=== PATIENT | female | born 1955 | race Caucasian/White ===

== ENCOUNTER 2016-09-12 06:16 | Day surgery (SDC) | payer OTHER ==
[~2016-09-12] VITALS: Ht 152.4 cm; Wt 85.1 kg
[2016-09-12] VITALS (11 sets, daily range): BP systolic 113–137; BP diastolic 68–85; PULSE 56–85; RESP 12–17; O2SAT 93–99
[~2016-09-12 06:16] MED LIST: ACET-2605 PO; ASPI-973 PO; ATA16T PO; ATEN50TA PO; CeFAZolin 2 Gm/50 mL D5W IV Premix IV ONE; Lactated Ringer's 1,000 ML IV SCH; NITR0.4T6 SL; SIMV40TA5 PO
[2016-09-12] MEDS ORDERED: fentaNYL-PF 50 mCg/mL 2 mL Inj ONE (06:17)
[2016-09-12] MEDS ORDERED: Propofol 10 mg/mL 20 mL Inj ONE (06:17)
[2016-09-12] MEDS ORDERED: Rocuronium 10 mg/mL 5 mL Inj ONE (06:17)
[2016-09-12] MEDS ORDERED: Dexamethasone 4 mg/mL Inj ONE (06:17)
[2016-09-12] MEDS ORDERED: EPHEDrine/NS 5 mg/mL 5 mL Syringe ONE (06:17)
[2016-09-12] MEDS ORDERED: Ondansetron 2 mg/mL 2 mL Inj ONE (06:17)
--- NOTE | 2016-09-12 06:52 | PCM.HPANE ---
Patient Data Surgeon Admitting Provider: Attending Provider:David Gallagher DO Primary Care Physician:Joi Other Provider:Roro Weiner Anesthesia Reason for Visit Left Shoulder Rotator Cuff Repair Ht/WT & BMI Height (Feet): 5 Weight (Kilograms): 85.1 Body Mass Index 36.00 Allergies Coded Allergies: atorvastatin (Verified Allergy, Unknown, joint aches, 09/10/16) lisinopril (Verified Allergy, Unknown, cough, 09/10/16) Past Anesthesia History Anesthesia History: Denies:: Anesthesia Reactions Diabetes History Hx Diabetes?: No Medications Blood Thinner: Aspirin Hypertension Medication: Yes Home Meds Incl Beta Beryl: Yes Reported Medications Acetaminophen/Diphenhydramine (Tylenol Pm Ex-Strength Caplet)500 Mg-25 Mg Tablet2-3 Each PO WEEKLY 09/10/16 Simvastatin 40 Mg [id number] Mg PO HS 30 Days Ref 0 09/10/16 Nitroglycerin SL 0.4 Mg Tab.subl0.4 Mg SL PRN For Chest Pain 09/10/16 Aspirin 81 Mg [id number] Mg PO DAILY Ref 0 09/10/16 Atenolol 50 Mg [id number] Mg PO DAILY #30 TABLET Ref 0 09/10/16 Candesartan Cilexetil (Atacand)16 Mg [id number] Mg PO DAILY 09/10/16 History History of ENT Problems?: No HEENT History: Denies:: Abnormal Airway Cataracts Difficult Intubation Dysphagia Glaucoma Hearing Problem Sinus Problem TMJ Denture Type: None Teeth Condition: Within Normal Limits Hx of Heart Problems?: Yes Cardiovascular History: Positive for:: Cardiac Surgery (cardiac cath with TIMOTHY x 2 2005) Hypertension Irregular Heartbeat (occ sinus bradycardia) Valvular Heart Disease (echo 2010-ef 65%) Denies:: AICD Congestive Heart Failure Heart Murmur Pacemaker Peripheral Vascular Hx of Respiratory Problem?: Yes Respiratory History: Positive for:: Use of C-PAP Machine Denies:: Oxygen Administration Tuberculosis Hx Neurologic Problems?: No Hx of GI Problems?: No Hx of Problems?: No Genitourinary History: Denies:: Kidney Stones Urinary Tract Infection Female Hx: Positive for:: Problems with Breasts? (hx benign breast bx ) Denies:: Currently (hysterectomy) Skin History: Denies:: History Skin Disorders? Hx Musculoskeletal Problems?: Yes Musculoskeletal History: Positive for:: Back Injury (hx of lami) Degenerative Joint Musculoskeletal Trauma (left shoulder current admission problem) Osteoarthritis Denies:: Joint Replacement Hx of Psycho/Social Problems?: No Hx Surgeries?: Yes (rt breast bx, lami, hyst) Hx Any Other Health Problems?: Yes Other History: Positive for:: Hospitalization (hx of hysterectomy josiah;ateral oopherectomy , appy, by lumpectomy) Denies:: Cancer Thyroid Disease History Blood Transfusions: Positive for:: Accept Blood Products? Denies:: Blood Transfuse Reaction Blood Transfusions Hx Diabetes: No Hx Alcohol Use: Yes (occ)Hx Substance Use: No Smoking Status: Never Smoker Have You Smoked inLast 12 mo: No Stop/Bang S-Snoring: Do You Snore Loudly: No T-Tired: feel tired, fatigued: No O-Obsered: Observed not breath: No P-Blood Pressure: treated: Yes B- Body Mass Index > 35 kg/m2: Yes A- Age over 50: Yes N- Neck Large Circumference: No G- Gender Male: No SINDHU Total Score: 3 Risk Assessment Category Category 1A: Patient has history of documented sleep apnea, and HAS NOT received any narcotic, sedative or anesthesia administration during this stay. Category 1B: Patient has history of documented sleep apnea, and HAS received any narcotic , sedative or anesthesia administration during this stay Category 2: Patient has SUSPECTED Obstructive Sleep Apnea, and HAS received any narcotic , sedative or anesthesia administration during this stay. Category 3: Patient has SUSPECTED Obstructive Sleep Apnea and HAS NOT received narcotic, sedative or anesthesia administration during this stay. Category 4: Outpatient in Procedural Areas with known sleep apnea or who screen positive for High Risk via the STOP/BANG questionnaire. Exam Exam Vital Signs Vital Signs Date Time Temp Pulse Resp B/P Pulse Ox O2 Delivery O2 Flow Rate FiO2 09/12/16 06:39 36.4 56 12 121/74 96 Room Air General Appearance: Alert, Oriented X3, Cooperative, No Acute Distress HEENT/AIRWAY: MP 2, Neck Movement (from), Mouth Opening (wnl) Lungs: Clear to Auscultation Heart: Exam Unremarkable Plan Impression Patient chart reviewed, patient interviewed and anesthestic plan with risks, benefits, and alternatives discussed, and informed consent obtained. ASA Physical Status: ASA2 Mod Systemic Disease Anesthetic Plan: GA Bene/Risks/Altern/Consents: Yes HP Complete Prior to Induction: Yes Saeid Porter MD 22, 2017 06:52
[2016-09-12] MEDS ORDERED: oxyCODONE-Acetamin 5-325 mg Tablet PO PRN (07:25)
[2016-09-12] MEDS ORDERED: Lactated Ringer's 1,000 ML IV SCH (08:56)
[2016-09-12] MEDS ORDERED: Lactated Ringer's 500 ML IV PRN (08:56)
[2016-09-12] MEDS ORDERED: Phenylephrine 10,000 mCg/mL Inj IVPUSH PRN (09:00)
[2016-09-12] MEDS ORDERED: Labetalol 5 mg/mL 4 mL Inj IV PRN (09:00)
[2016-09-12] MEDS ORDERED: Ondansetron 2 mg/mL 2 mL Inj IVPUSH PRN (09:00)
[2016-09-12] MEDS ORDERED: Atropine 0.4 mg/mL Inj IVPUSH PRN (09:00)
[2016-09-12] MEDS ORDERED: fentaNYL-PF 50 mCg/mL 2 mL Inj IVPUSH PRN (09:00)
[2016-09-12] MEDS ORDERED: EPHEDrine Sulfate 50 mg/mL Inj IVPUSH PRN (09:00)
[2016-09-12] MEDS ORDERED: Dexamethasone 4 mg/mL Inj IVPUSH PRN (09:00)
[2016-09-12] MEDS ORDERED: HYDROmorphone 1 mg/mL Inj IVPUSH PRN (09:00)
[2016-09-12] MEDS ORDERED: hydrALAZINE 20 mg/mL Inj IVPUSH PRN (09:00)
[2016-09-12] MEDS ORDERED: Lactated Ringer's 1,000 ML IV ONE ×2 (09:12→09:30)
[2016-09-12] MEDS ORDERED: Lidocaine 1%-Epi 1:100,000 20 mL Inj INJ ONE (09:16)
--- NOTE | 2016-09-12 10:11 | PCM.HPANE ---
Patient Data Surgeon Admitting Provider: Attending Provider:David Gallagher DO Primary Care Physician:Joi Other Provider:Roro Weiner Anesthesia Reason for Visit Left Shoulder Rotator Cuff Repair Ht/WT & BMI Height (Feet): 5 Weight (Kilograms): 85.1 Body Mass Index 36.00 Allergies Coded Allergies: atorvastatin (Verified Allergy, Unknown, joint aches, 09/10/16) lisinopril (Verified Allergy, Unknown, cough, 09/10/16) Past Anesthesia History Anesthesia History: Denies:: Anesthesia Reactions Diabetes History Hx Diabetes?: No Medications Blood Thinner: Aspirin Hypertension Medication: Yes Home Meds Incl Beta Beryl: Yes Reported Medications Simvastatin 40 Mg [id number] Mg PO HS 30 Days Ref 0 09/10/16 Nitroglycerin SL 0.4 Mg Tab.subl0.4 Mg SL PRN For Chest Pain 09/10/16 Aspirin 81 Mg [id number] Mg PO DAILY Ref 0 09/10/16 Atenolol 50 Mg [id number] Mg PO DAILY #30 TABLET Ref 0 09/10/16 Candesartan Cilexetil (Atacand)16 Mg [id number] Mg PO DAILY 09/10/16 Discontinued Reported Medications Acetaminophen/Diphenhydramine (Tylenol Pm Ex-Strength Caplet)500 Mg-25 Mg Tablet2-3 Each PO WEEKLY 09/10/16 History History of ENT Problems?: No HEENT History: Denies:: Abnormal Airway Cataracts Difficult Intubation Dysphagia Glaucoma Hearing Problem Sinus Problem TMJ Denture Type: None Teeth Condition: Within Normal Limits Hx of Heart Problems?: Yes Cardiovascular History: Positive for:: Cardiac Surgery (cardiac cath with TIMOTHY x 2 2005) Hypertension Irregular Heartbeat (occ sinus bradycardia) Valvular Heart Disease (echo 2010-ef 65%) Denies:: AICD Abdominal Aortic Aneurism Atrial Fibrillation Chest Pain Congestive Heart Failure Coronary Artery Disease Edema Heart Murmur Pacemaker Peripheral Vascular Rheumatic Fever Thrombophlebitis Hx of Respiratory Problem?: Yes Respiratory History: Positive for:: Use of C-PAP Machine Denies:: Asthma COPD Chest Surgery Cough Dyspnea Emphysema Hemoptysis Oxygen Administration Pneumonia Pulmonary Embolism Tuberculosis Use of Inhalers / NEBS Hx Neurologic Problems?: No Neurological History: Denies:: Alzheimer's Disease CVA Dementia Dizziness Headaches Multiple Sclerosis Parkinson's Disease Peripheral Neuropathy Seizures TIA Hx of GI Problems?: No Gastrointestinal History: Denies:: Cirrhosis Diverticulitis Gall Bladder Disease Gastroesphageal Reflux Gastrointestinal Bleeding Heartburn Hepatitis Hiatal Hernia Liver Disease Rectal Bleeding Hx of Problems?: No Genitourinary History: Denies:: HX of Hemodialysis Kidney Stones Urinary Tract Infection HX of Peritoneal Dialysis: No Female Hx: Positive for:: Problems with Breasts? (hx benign breast bx ) Denies:: Currently (hysterectomy) Endometriosis Pelvic Inflammatory Skin History: Denies:: History Skin Disorders? Pressure Ulcers Hx Musculoskeletal Problems?: Yes Musculoskeletal History: Positive for:: Back Injury (hx of lami) Degenerative Joint Musculoskeletal Trauma (left shoulder current admission problem) Osteoarthritis Denies:: Fibromyalgia Joint Replacement Myasthenia Gravis Rheumatoid Arthritis Systemic Lupus Hx of Psycho/Social Problems?: No Psycho Social History: Denies:: Anxiety Bipolar Disorder Hx Depression Suicide Attempt Hx Surgeries?: Yes (rt breast bx, lami, hyst) Hx Any Other Health Problems?: Yes Other History: Positive for:: Hospitalization (hx of hysterectomy josiah;ateral oopherectomy , appy, by lumpectomy) Denies:: Cancer Thyroid Disease History Blood Transfusions: Positive for:: Accept Blood Products? Denies:: Blood Transfuse Reaction Blood Transfusions Hx Diabetes: No Hx Alcohol Use: Yes (occ)Hx Substance Use: No Smoking Status: Never Smoker Have You Smoked inLast 12 mo: No Stop/Bang S-Snoring: Do You Snore Loudly: No T-Tired: feel tired, fatigued: No O-Obsered: Observed not breath: No P-Blood Pressure: treated: Yes B- Body Mass Index > 35 kg/m2: Yes A- Age over 50: Yes N- Neck Large Circumference: No G- Gender Male: No SINDHU Total Score: 3 Risk Assessment Category Category 1A: Patient has history of documented sleep apnea, and HAS NOT received any narcotic, sedative or anesthesia administration during this stay. Category 1B: Patient has history of documented sleep apnea, and HAS received any narcotic , sedative or anesthesia administration during this stay Category 2: Patient has SUSPECTED Obstructive Sleep Apnea, and HAS received any narcotic , sedative or anesthesia administration during this stay. Category 3: Patient has SUSPECTED Obstructive Sleep Apnea and HAS NOT received narcotic, sedative or anesthesia administration during this stay. Category 4: Outpatient in Procedural Areas with known sleep apnea or who screen positive for High Risk via the STOP/BANG questionnaire. Exam Exam Vital Signs Vital Signs Date Time Temp Pulse Resp B/P Pulse Ox O2 Delivery O2 Flow Rate FiO2 09/12/16 07:04 36.4 56 12 121/74 96 Room Air 09/12/16 06:39 36.4 56 12 121/74 96 Room Air General Appearance: Alert, Oriented X3, Cooperative, No Acute Distress HEENT/AIRWAY: MP 2, Neck Movement (FROM), Mouth Opening (3 FBMO) Lungs: Clear to Auscultation, Normal Air Movement Heart: Exam Unremarkable, Regular Rate/Rhythm, No Murmurs/Rubs/Gallops Plan Impression Patient chart reviewed, patient interviewed and anesthestic plan with risks, benefits, and alternatives discussed, and informed consent obtained. NPO per Anesth. Guidelines: Yes ASA Physical Status: ASA2 Mod Systemic Disease Anesthetic Plan: GA, Regional Block Bene/Risks/Altern/Consents: Yes HP Complete Prior to Induction: Yes Archie Villeda MD Sep 12, 2016 07:15
--- NOTE | 2016-09-12 11:37 | OP ---
[address] [address] OPERATIVE REPORT PATIENT: SHAMAR ARELLANO : 1955 MR#: [id number] ADMIT: 09/12/2016 JOB ID: [id number] DATE OF SURGERY: 09/12/2016 PREOPERATIVE DIAGNOSIS(ES): 1. Left shoulder rotator cuff tear. 2. Left shoulder superior posterior labral tear. 3. Left shoulder impingement syndrome. 4. Left shoulder acromioclavicular arthritis. POSTOPERATIVE DIAGNOSIS(ES): 1. Left shoulder rotator cuff tear. 2. Left shoulder superior posterior labral tear. 3. Left shoulder impingement syndrome. 4. Left shoulder acromioclavicular arthritis. PROCEDURE: 1. Left shoulder arthroscopy with rotator cuff repair. 2. Left shoulder arthroscopy with subacromial decompression and acromioplasty. 3. Left shoulder arthroscopy with distal clavicle excision. 4. Left shoulder open biceps tenodesis. SURGEON: David Gallagher D.O. DRY BOX OPERATOR: Manuel Beltrán PA-C The assistance of Manuel Beltrán PA-C was necessary for help with manipulation of the intra-articular equipment and for retraction during the open portion of the procedure. BRIEF HISTORY: The patient is a pleasant 61-year-old female with longstanding history of left shoulder pain. She had failed conservative treatment and was referred over to me with an MRI that demonstrated a rotator cuff tear as well as his posterior superior labral tear. She understood the risks include, but not limited to, neurovascular injury, tendon injury, infection, failure of fixation, stiffness, persistent pain, all of which may require further intervention. Patient had all questions answered. Consent was signed and placed in the chart. PROCEDURE IN DETAIL: The patient was brought to the operative suite and placed supine on the operating room table. Surgical time-out was performed and everyone in the room was in agreement. After appropriate anesthesia was obtained, the patient was placed in the beach chair position with all prominences well padded. Left upper extremity then prepped and draped in a sterile fashion. Left upper extremity then placed into arthroscopic arm alston. A posterior viewing portal was then developed in a typical fashion. The camera introduced into the glenohumeral joint. On gross observation, there was no evidence of chondromalacia to the humeral head or the glenoid. There was a superior labral tear and a minimal bicipital tendinopathy. There was a tear to the anterior aspect of the supraspinatus. An anterior working portal was then developed in a typical fashion, first utilizing an 18-gauge spinal needle to determine the position of the working portal. Shaver was introduced to perform a debridement of the labrum. The labrum was found to be listed as well as the biceps anchor off of the superior glenoid and thus decision was made to proceed with an open biceps tenodesis later on in the procedure. The biceps was tenotomized with scissors and the stump debrided back with a shaver until a stable rim was created. The anterior supraspinatus tear was tagged with a Prolene suture. The camera was then brought into the subacromial space. There was significant hypertrophic bursa. Lateral working portal was then created. Shaver introduced to perform extensive bursectomy. The rotator cuff tear was well identified and debrided as well as its insertion onto the greater tuberosity. The greater tuberosity footprint was then prepared and two Arthrex 4.5 mm corkscrew anchors were then placed just lateral to the articular surface of the humeral head. The sutures were then shuttled through the rotator cuff and tied with multiple sliding knots for excellent single row repair. Next, the undersurface of the acromion was further delineated with a surface electrocautery wand. There was an anterior under hanging of the acromion which was debrided with a bur to perform an acromioplasty. Next, the bur was brought through the anterior portal where distal clavicle excision was then performed excising approximately 8-10 mm of the distal clavicle. Arthroscopic equipment was then removed from the joint and the attention turned toward the open biceps tenodesis procedure. A small modified deltopectoral incision was utilized. The deltoid was retracted laterally and the pectoralis medially. The biceps tendon that was previously tenotomized was identified within the bicipital groove and tagged. Within the groove, a K-wire was then advanced followed by over reaming to a size 8. As the tendon was sized out to a size 8, next an Arthrex four tip swivel lock was used to place the biceps tendon within the prepared hole and an interference screw then passed overlying the biceps for additional fixation. The residual biceps tendon that was free was cut sharply with a scalpel. Copious irrigation was then performed. Subcutaneous tissues closed with Vicryl and nylon for the skin as well as the portals. The patient was then placed in a bulky soft dressing and into a shoulder immobilizer. ESTIMATED BLOOD LOSS: 25 cc. COMPLICATIONS: None. DISPOSITION: The patient tolerated the procedure well. Anesthesia was reversed. The patient was transferred back to recovery. POSTOPERATIVE PLAN: The patient will followup in my office in two weeks. I will remove the patient's sutures at that time and then start her in formal physical therapy concentrating only on passive range of motion exercises.
--- NOTE | 2016-09-12 11:59 | PCM.ANEP1 ---
Post Anesthesia PACU Phase 1 Assessment Vital Signs Vital Signs Date Time Temp Pulse Resp B/P Pulse Ox O2 Delivery O2 Flow Rate FiO2 09/12/16 11:53 69 15 132/75 93 Room Air 09/12/16 11:42 66 15 136/73 93 09/12/16 11:27 65 14 127/76 93 09/12/16 11:15 70 14 113/78 93 Room Air 09/12/16 11:00 65 13 129/77 95 Nasal Cannula 3 09/12/16 10:55 67 15 128/68 97 Nasal Cannula 3 09/12/16 10:50 85 16 134/80 97 Nasal Cannula 3 09/12/16 10:45 36.2 74 14 137/85 99 Nasal Cannula 3 09/12/16 07:04 36.4 56 12 121/74 96 Room Air 09/12/16 06:39 36.4 56 12 121/74 96 Room Air Anesthetic Administered: GA Level of Alertness: Awake, talking SHELTON's with Equal Strength: No Pain: No Nausea or Vomiting: No CV Function & Hydration Stable: Yes Airway Device: Lungs: Normal Air Movement PACU Phase 2 Assessment Complications: No Follow up Care: No Patient Instructions Provided: N/A Saeid Porter MD Sep 12, 2016 11:59
== END 2016-09-12 23:59 | disposition home or self-care (01) ==
LOC: SAS 06:16
PROVIDERS: ATTEND Orthopaedic Surgery
DX: M75.122 Complete rotator cuff tear or rupture of left shoulder, not specified as traumatic (principal); M75.42 Impingement syndrome of left shoulder; M19.012 Primary osteoarthritis, left shoulder; S43.432A Superior glenoid labrum lesion of left shoulder, initial encounter; I10 Essential (primary) hypertension; I25.10 Atherosclerotic heart disease of native coronary artery without angina pectoris; R00.1 Bradycardia, unspecified; E78.5 Hyperlipidemia, unspecified; I34.0 Nonrheumatic mitral (valve) insufficiency; G25.81 Restless legs syndrome; G47.33 Obstructive sleep apnea (adult) (pediatric); E66.8 Other obesity; Z95.5 Presence of coronary angioplasty implant and graft; Z90.710 Acquired absence of both cervix and uterus; Z79.82 Long term (current) use of aspirin; Z68.37 Body mass index [BMI] 37.0-37.9, adult; Z53.33 Arthroscopic surgical procedure converted to open procedure
CPT/HCPCS: 23430; 29824; 29826; 29827; C1713; J0171; J0690; J1100; J2405; J3010; J7120